=== PATIENT | male | born 1985 | race Hispanic/Latino ===

== ENCOUNTER 2019-04-07 03:54 | Emergency (ER) | payer MEDICAID ==
[2019-04-07 04:39] LABS: BASOPHILS % (AUTO) 0.5 % (0.0-5.0); EOSINOPHILS % (AUTO) 1.5 % (0.0-8.0); HEMATOCRIT 46.8 % (42-54); LYMPHOCYTES % (AUTO) 38.3 % (21.0-51.0); MEAN CORPUSCULAR HEMOGLOBIN 32.9 pg (27.0-33.0); MEAN CORPUSCULAR HGB CONC 35.1 g/dL (32.0-36.0); MEAN CORPUSCULAR VOLUME 93.6 fL (79-99); MONOCYTES % (AUTO) 8.4 % (3.0-13.0); NEUTROPHILS % (AUTO) 51.3 % (40.0-77.0); NUCLEATED RED BLOOD CELLS 0.1 % (0.0-0.19); PLATELET COUNT (AUTO) 195 K/uL (130-400); RED CELL DISTRIBUTION WIDTH 14.1 % (11.0-15.5); WHITE BLOOD COUNT (AUTO) 13.2 K/uL (4.8-10.8)
[2019-04-07 04:45] LABS: APPEARANCE,URINE Clear (CLEAR); BILIRUBIN,URINE Negative (NEGATIVE); COLOR,URINE Yellow (YELLOW); GLUCOSE, URINE (UA) Negative (NEGATIVE); KETONES,URINE Negative (NEGATIVE); LEUKOCYTE ESTERASE ,URINE Negative (NEGATIVE); NITRATE,URINE Negative (NEGATIVE); OCCULT BLOOD,URINE Moderate (NEGATIVE); PH,URINE 5.5 (5.0-8.0); PROTEIN,URINE Negative (NEGATIVE); UROBILINOGEN,URINE 0.2 mg/dL (0.2-1.0)
[2019-04-07 04:46] LABS: CREATININE 0.9 mg/dL (0.5-1.5); POTASSIUM 3.9 mmol/L (3.5-5.1)
[2019-04-07 04:50] LABS: ALBUMIN 4.2 g/dL (3.5-5.0); BILIRUBIN,TOTAL 0.3 mg/dL (0.2-1.0); TOTAL PROTEIN, SERUM 8.1 g/dL (6.0-8.3)
[2019-04-07 04:52] LABS: INR 0.96 (0.85-1.15); PARTIAL THROMBOPLASTIN TIME 34.2 SEC (26.3-35.5); PROTHROMBIN TIME 10.1 SEC (9.6-11.6)
[2019-04-07 05:17] LABS: BACTERIA,URINE Few /HPF (None Seen); SQUAMOUS EPITHELIAL CELL,UR 0-2 /HPF (0-2); WBC,URINE 0-1 /HPF (0-1)
[2019-04-07] MEDS ORDERED: IOHEXOL-350 75 ML VIAL IV ONE (05:52)
== END 2019-04-07 08:17 | disposition home or self-care (01) ==
LOC: EDH 03:54
DX: R19.7 Diarrhea, unspecified (principal); R42 Dizziness and giddiness; R11.0 Nausea; Z98.890 Other specified postprocedural states
CPT/HCPCS: 36415; 71046; 74177; 80053; 81001; 82270; 83690; 85025; 85610; 85730; 99285; Q9967

== ENCOUNTER 2022-01-06 15:35 | Emergency (ER) | payer MEDICAID ==
[~2022-01-06] VITALS: Ht 182.9 cm; Wt 113.4 kg
[2022-01-06] MEDS ORDERED: KETOROLAC 30MG VIAL (30MG/ML) IM ONE (16:00)
[2022-01-06 16:07] LABS: BASOPHILS % (AUTO) 0.3 % (0.0-5.0); EOSINOPHILS % (AUTO) 0.7 % (0.0-8.0); HEMATOCRIT 49.5 % (42-54); LYMPHOCYTES % (AUTO) 20.6 % (21.0-51.0); MEAN CORPUSCULAR HEMOGLOBIN 30.6 pg (27.0-33.0); MEAN CORPUSCULAR HGB CONC 32.7 g/dL (32.0-36.0); MEAN CORPUSCULAR VOLUME 93.4 fL (79-99); MONOCYTES % (AUTO) 8.5 % (3.0-13.0); NEUTROPHILS % (AUTO) 69.5 % (40.0-77.0); PLATELET COUNT (AUTO) 272 K/uL (130-400); RED CELL DISTRIBUTION WIDTH 13.9 % (11.0-15.5); WHITE BLOOD COUNT (AUTO) 18.2 K/uL (4.8-10.8)
[2022-01-06 16:21] LABS: CREATININE 0.9 mg/dL (0.5-1.5); POTASSIUM 3.8 mmol/L (3.5-5.1)
[2022-01-06 16:27] LABS: BILIRUBIN,TOTAL 0.3 mg/dL (0.2-1.0); TOTAL PROTEIN, SERUM 7.9 g/dL (6.0-8.3)
[2022-01-06 16:31] LABS: APPEARANCE,URINE CLOUDY (CLEAR); BILIRUBIN,URINE NEGATIVE (NEGATIVE); COLOR,URINE YELLOW (YELLOW); GLUCOSE, URINE (UA) NEGATIVE (NEGATIVE); KETONES,URINE NEGATIVE (NEGATIVE); LEUKOCYTE ESTERASE ,URINE MODERATE (NEGATIVE); NITRATE,URINE POSITIVE (NEGATIVE); OCCULT BLOOD,URINE MODERATE (NEGATIVE); PROTEIN,URINE TRACE mg/dL (NEGATIVE); UROBILINOGEN,URINE 0.2 mg/dL (0.2-1.0)
[2022-01-06 16:46] LABS: BACTERIA,URINE Moderate /HPF (None Seen); WBC,URINE >100 /HPF (0-1)
[2022-01-06 16:47] LABS: SQUAMOUS EPITHELIAL CELL,UR Rare /HPF (0-2)
[2022-01-06 17:02] VITALS: BP 135/89
[2022-01-06] MEDS ORDERED: NAPR500T6 PO (17:29)
[2022-01-06] MEDS ORDERED: CEPH500B PO (17:29)
[2022-01-06] MEDS ORDERED: CEFTRIAXONE 1G VIAL IV SCH (17:30)
[2022-01-06] MEDS ORDERED: AZITHROMYCIN 250 MG TABLET PO ONE (17:38)
== END 2022-01-06 17:36 | disposition home or self-care (01) ==
LOC: EDH 15:35
DX: K40.90 Unilateral inguinal hernia, without obstruction or gangrene, not specified as recurrent (principal); N39.0 Urinary tract infection, site not specified; D72.828 Other elevated white blood cell count
CPT/HCPCS: 36415; 76870; 80053; 81001; 85025; 87077; 87088; 87186; 96372; 96374; 99285; J0696; J1885

== ENCOUNTER 2022-10-26 19:06 | Emergency (ER) | payer MEDICAID ==
[~2022-10-26] VITALS: Ht 175.3 cm; Wt 97.5 kg
[~2022-10-26 19:06] MED LIST: CEPH500B PO; NAPR500T6 PO
[2022-10-26 20:09] VITALS: BP 125/63
== END 2022-10-26 20:32 | disposition home or self-care (01) ==
LOC: EDH 19:06
DX: F41.9 Anxiety disorder, unspecified (principal); N48.89 Other specified disorders of penis; Z79.1 Long term (current) use of non-steroidal anti-inflammatories (NSAID); Z90.79 Acquired absence of other genital organ(s)
CPT/HCPCS: 99281

== ENCOUNTER 2024-03-27 16:56 | Emergency (ER) | payer MEDICAID, OTHER ==
[~2024-03-27] VITALS: Ht 172.7 cm; Wt 65.8 kg
[2024-03-27 18:12] LABS: BASOPHILS # (AUTO) 0.02 K/uL (0.00-0.20); BASOPHILS % (AUTO) 0.1 % (0.0-5.0); EOSINOPHILS # (AUTO) 0.04 K/uL (0.00-0.70); EOSINOPHILS % (AUTO) 0.3 % (0.0-8.0); HEMATOCRIT 48.5 % (42-54); IMMATURE GRANULOCYTE ABSOLUTE 0.04 K/uL (0-1); LYMPHOCYTES # (AUTO) 1.5 K/uL (1.0-4.8); LYMPHOCYTES % (AUTO) 10.3 % (21.0-51.0); MEAN CORPUSCULAR HEMOGLOBIN 32.4 pg (27.0-33.0); MEAN CORPUSCULAR HGB CONC 34.4 g/dL (32.0-36.0); MEAN CORPUSCULAR VOLUME 94.2 fL (79-99); MONOCYTES # (AUTO) 1.2 K/uL (0.1-1.0); NEUTROPHILS # (AUTO) 11.9 K/uL (1.8-7.7); PLATELET COUNT (AUTO) 222 K/uL (130-400); RED BLOOD CELL COUNT(AUTO) 5.15 MIL/uL (4.50-6.20); RED CELL DISTRIBUTION WIDTH 13.2 % (11.0-15.5); WHITE BLOOD COUNT (AUTO) 14.7 K/uL (4.8-10.8)
[2024-03-27 18:22] LABS: CARBON DIOXIDE 28 mmol/L (21-32); CHLORIDE 103 mmol/L (101-111); CREATININE 1.4 mg/dL (0.5-1.3); GLOMERULAR FILTR. RATE CALC 66 mL/min (>90); GLUCOSE,RANDOM 107 mg/dL (70-105); POTASSIUM 4.1 mmol/L (3.5-5.1); SODIUM SERUM 142 mmol/L (136-145); UREA NITROGEN, BLOOD 16 mg/dL (7-18)
[2024-03-27 18:28] LABS: ALANINE AMINOTRANSFERASE 20 U/L (12-78); ALBUMIN 4.5 g/dL (3.5-5.0); ASPARTATE AMINOTRANSFERASE 15 U/L (10-37); BILIRUBIN,TOTAL 0.9 mg/dL (0.2-1.0); CREATINE KINASE, TOTAL 169 U/L (21-232); TOTAL PROTEIN, SERUM 8.2 g/dL (6.0-8.3)
[2024-03-27 18:35] LABS: ACETAMINOPHEN < 1 mcg/mL (10-29); SALICYLATE < 2.8 mg/dL (2.8-20.0)
[2024-03-27 19:02] LABS: AMPHET/METH SCREEN,URINE NEGATIVE (NEGATIVE); BARBITURATE SCREEN, URINE NEGATIVE (NEGATIVE); BENZODIAZEPINES SCREEN,URINE NEGATIVE (NEGATIVE); CANNABINOID SCREEN,URINE NEGATIVE (NEGATIVE); COCAINE SCREEN,URINE NEGATIVE (NEGATIVE); OPIATE SCREEN,URINE NEGATIVE (NEGATIVE); PHENCYCLIDINE SCREEN,URINE NEGATIVE (NEGATIVE)
[2024-03-27 21:14] VITALS: BP 116/73; PULSE 68; RESP 16; O2SAT 100
== END 2024-03-27 21:37 | disposition home or self-care (01) ==
LOC: EDH 16:56
DX: F20.9 Schizophrenia, unspecified (principal)
CPT/HCPCS: 99284; 82550; 80053; 80305; 85025; 36415; 93005; G0481; 96374; 96375